=== PATIENT | female | born 1975 | race Two or more races ===

== ENCOUNTER 2021-10-25 11:08 | Emergency (ER) | payer OTHER ==
[~2021-10-25] VITALS: Ht 162.6 cm; Wt 88.5 kg
[2021-10-25 11:10] VITALS: BP_SYST 130
[2021-10-25] MEDS ORDERED: ONDANSETRON HCL 4 MG/2 ML VIAL IVP ONE (11:30)
[2021-10-25] MEDS ORDERED: NACL 0.9% 1,000 ML IV ONE (11:30)
[2021-10-25] MEDS ORDERED: MORPHINE 4 MG INJ. 4 MG/ML VIAL IVP ONE (11:30)
[2021-10-25 11:44] LABS: BASOPHILS # (AUTO) 0.1 K/uL (0.0-0.2); BASOPHILS % (AUTO) 0.7 % (0.0-2.0); EOSINOPHILS % (AUTO) 0.4 % (0.0-4.0); HEMATOCRIT 38.8 % (36-48); HEMOGLOBIN 13.5 g/dL (12.0-16.0); LYMPHOCYTES # (AUTO) 1.7 K/uL (1.0-5.5); LYMPHOCYTES % (AUTO) 18.1 % (20.5-51.5); MEAN CORPUSCULAR HEMOGLOBIN 32 pg (27-31); MEAN CORPUSCULAR HGB CONC 35 % (32-36); MEAN CORPUSCULAR VOLUME 91 fL (79.0-98.0); MONOCYTES # (AUTO) 0.7 K/uL (0.0-1.0); MONOCYTES % (AUTO) 7.8 % (1.7-9.3); NEUTROPHILS # (AUTO) 6.8 K/uL (1.8-7.7); PLATELET COUNT (AUTO) 274 K/uL (130-430); RED BLOOD CELL COUNT(AUTO) 4.24 MIL/uL (4.2-6.2); RED CELL DISTRIBUTION WIDTH 13.2 % (9.0-15.0); WHITE BLOOD COUNT (AUTO) 9.4 K/uL (4.8-10.8)
[2021-10-25 11:55] LABS: BILIRUBIN,URINE NEGATIVE (NEGATIVE); BLOOD, URINE 2+ (NEGATIVE); CLARITY/URINE CLEAR (CLEAR); COLOR,URINE YELLOW (YELLOW); GLUCOSE,URINE NEGATIVE (NEGATIVE); KETONES,URINE 2+ (NEGATIVE); LEUKOCYTE ESTERASE ,URINE NEGATIVE (NEGATIVE); NITRITE, URINE NEGATIVE (NEGATIVE); PROTEIN URINE NEGATIVE (NEGATIVE); UROBILINOGEN,URINE 0.2 (0.2-1.0)
[2021-10-25 12:19] LABS: POTASSIUM 3.6 mmol/L (3.5-5.1)
[2021-10-25 12:20] LABS: CALCIUM 8.9 mg/dL (8.4-11.0); CREATININE 0.76 mg/dL (0.55-1.30)
[2021-10-25 12:21] LABS: ALBUMIN 3.7 g/dL (3.4-4.8)
[2021-10-25 12:23] LABS: BACTERIA,URINE None Seen /HPF (None Seen)
[2021-10-25 12:35] LABS: TOTAL BILIRUBIN 0.3 mg/dL (0.0-1.0)
[2021-10-25] MEDS ORDERED: DICY10CA13 PO (13:36)
[2021-10-25] MEDS ORDERED: ONDA-8 TL (13:36)
[2021-10-25 14:02] VITALS: BP_SYST 124
== END 2021-10-25 14:03 | disposition home or self-care (01) ==
LOC: SED 11:08
DX: K57.90 Diverticulosis of intestine, part unspecified, without perforation or abscess without bleeding (principal); R51.9 Headache, unspecified; R11.2 Nausea with vomiting, unspecified; Z79.899 Other long term (current) drug therapy
CPT/HCPCS: 99284; 70450; 96374; 96361; 96375; 80053; 81000; 84703; 83690; 85025; 87086; 36415; 76376; 74176; 81025; J2405; J2270; J7030

== ENCOUNTER 2022-08-14 13:01 | Emergency (ER) | payer OTHER ==
[~2022-08-14] VITALS: Ht 160 cm; Wt 93.4 kg
[~2022-08-14 13:01] MED LIST: DICY10CA13 PO; ONDA-8 TL
[2022-08-14 13:05] VITALS: BP_SYST 99
--- NOTE | 2022-08-14 13:10 | NUR ---
Patient triaged and placed in waiting room. VSS and patient appears in no acute distress at this time. Accompanied by SELF, awaiting available bed, and MD notified of need for MSE.
--- NOTE | 2022-08-14 14:05 | NUR ---
DR QUINN OUT TO TRIAGE ROOM FOR EVALUATION
--- NOTE | 2022-08-14 14:28 | NUR ---
Patient given written and verbal discharge instructions and verbalizes understanding. ER MD discussed with patient the results and treatment provided. Patient in stable condition. ID arm band removed. Rx of NONE given. Patient educated on pain management and to follow up with PMD. Pain Scale 2/10. Opportunity for questions provided and answered. Medication side effect fact sheet provided.
== END 2022-08-14 14:28 | disposition home or self-care (01) ==
LOC: SED 13:01
DX: K60.2 Anal fissure, unspecified (principal); K62.5 Hemorrhage of anus and rectum; Z79.899 Other long term (current) drug therapy
CPT/HCPCS: 99281